=== PATIENT | female | born 1960 | race Caucasian/White ===

== ENCOUNTER 2017-11-17 06:40 | Inpatient (IN) | payer OTHER, SELFPAY ==
[2017-11-11 09:02] VITALS: BP 137/85; PULSE 86; RESP 16; TEMP 37.1; O2SAT 97; BMI 34.1
--- NOTE | 2017-11-11 09:38 | EKG12_ITS ---
Test Reason : Blood Pressure : / mmHG Vent. Rate : 079 BPM Atrial Rate : 079 BPM P-R Int : 128 ms QRS Dur : 086 ms QT Int : 384 ms P-R-T Axes : 029 -10 026 degrees QTc Int : 440 ms Normal sinus rhythm Moderate voltage criteria for LVH, may be normal variant Borderline ECG Confirmed by FLOR MIGUEL, JESSI ([id number]), film editor CELESTE RAYA ([id number]) on 11/12/2017 1:39:43 PM Referred By: READER PROJU Confirmed By:JESSI RAY MD
--- NOTE | 2017-11-11 09:40 | RAD_ITS ---
STUDY: X-RAY CHEST REASON FOR EXAM: Female, 56 years old. Preoperative evaluation for renal TECHNIQUE: PA and lateral views of the chest. COMPARISON: None. FINDINGS: The lungs are clear and expanded. Scattered calcified granulomas. There is no demonstrated pleural abnormality. Normal size heart. Normal mediastinum and king. Normal visualized pulmonary arteries. There is atherosclerotic tortuosity of the aortic arch and descending thoracic aorta. There are mild degenerative changes of the visualized thoracic spine. Normal visualized ribs, clavicles, and shoulders. There is no demonstrated abnormality of the visualized soft tissue structures of the upper abdomen. RAD/Chest PA and Lateral IMPRESSION: No acute abnormality is seen. Electronically Signed: Tad Devi MD at 10:50 EST Tel [phone], Service support ,
[2017-11-11 11:43] LABS: Hematocrit 40.7 % (37-47); Hemoglobin 13.1 g/dl (12.0-15.0); Mean Corp Hgb Conc 32.2 g/gl (32-36); Mean Corpuscular Hgb 28.4 pg (27.0-32.0); Mean Corpuscular Volume 88.1 fL (81-99); Platelet Count 250 K/mm3 (150-450); RBC Distribution Width CV 13.1 % (11.6-14.6); Red Blood Count 4.62 M/mm3 (4.2-5.4); Scan Indicated on CBC? Y/N NO; White Blood Count 5.8 K/mm3 (4.4-11.0)
[2017-11-11 12:32] LABS: AST(SGOT) 19 U/L (15-37); Alanine Aminotransfer ALT/SGPT 31 U/L (13-56); Albumin, Serum 3.8 g/dL (3.2-5.0); Alkaline Phosphatase 95 U/L (45-117); Anion Gap 7 (5-15); BUN 14 mg/dL (7-18); BUN/Creat Ratio 21.7 RATIO (10-20); Calcium,Total 8.9 mg/dL (8.5-10.1); Chloride 104 mmol/L (98-107); Creatinine, Serum 0.64 mg/dL (0.55-1.02); EST Glomerular Filtration Rate 101 mL/min (>60); Est Glom Filt Rate - Afr Amer 122 mL/min (>60); Estimated Creatinine Clearance 88.32 ml/min; Globulin 3.8 g/dL (2.2-4.2); Glucose 93 mg/dL (74-106); Potassium 4.2 mmol/L (3.5-5.1); Protein, Total 7.6 g/dL (6.4-8.2); Sodium Level 140 mmol/L (136-145); Thyroid Stim Hormone (TSH) 4.56 uIU/mL (0.358-3.74)
[2017-11-17] VITALS (14 sets, daily range): BP systolic 115–146; BP diastolic 72–88; PULSE 66–97; RESP 16–18; TEMP 35.8–37; O2SAT 92–99; BMI 34.1
[2017-11-17] MEDS: Cefazolin 2 GM in 0.9% Normal Saline 100 ML IV (08:29)
--- NOTE | 2017-11-17 08:45 | MASS_PTH ---
PATIENT: RYLAN RAYA LOC: MS2 U#:[id number] AGE/SX: 56/F ROOM: MS206 RE11/17/[address]: Dr. Aaron Perez MD : [id number] BED: 1 DIS: 11/19/2017 SPEC #: [id number] RECD: 11/17/17 15:10 STATUS: ITA GUSTABO #: [id number] LOLLY: 11/17/17 08:[address]: Aaron Perez DEPT: SURGICAL PATHOLOGY RECD BY: Justin Sandoval ENTERED: 11/18/17 09:02 SP TYPE: Mass OTHR DR: Dr. 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 See cancer summary below. KIDNEY CANCER SUMMARY: Procedure ? partial nephrectomy Specimen laterality - left Tumor site ? not specified Tumor size ? 1.6 cm in diameter Tumor focality - unifocal Macroscopic extent of tumor ? tumor limited to kidney Histologic type ? clear cell renal cell carcinoma Sarcomatoid features ? not identified Tumor necrosis ? not identified Histologic grade ([place] nuclear grade) ? predominantly grade 1 and focal area with grade 2 Microscopic tumor extension ? tumor limited to kidney Margins ? margins uninvolved by invasive carcinoma. Lymph-Vascular invasion ? not identified Regional lymph nodes ? no nodes submitted or found. Distant metastasis ? not applicable Pathologic findings in nonneoplastic kidney ? interstitial chronic inflammation and lymphoid aggregate formation, favor benign Other tumor and/or tumor-like lesions ? none identified PATHOLOGIC STAGE: pT1a pNx Mx The above summary is in compliance with [employer] [place] [employer] (CAP) Cancer Protocols Checklist and [place] [employer] Committee on Cancer (AJCC), Staging Manual, 8th Ed. SJ:rg 11/19/17 MICROSCOPIC DESCRIPTION Slides are reviewed. GROSS DESCRIPTION Received in fixative is one container labeled with the patient's name and designated left renal mass. The specimen consists of a round piece of duke-pink soft tissue with adipose tissue at one edge of the specimen measuring 2.5 x 2 x 1.8 cm. The specimen is inked, serially sectioned and reveals a round, hemorrhagic mass with focal cystic area occupying almost 90% of the specimen and measuring 1.6 cm in diameter. The mass shows thin capsule. No obvious normal renal parenchymal tissue is noted grossly. The entire specimen is submitted in four cassettes from end to another. / MAYRA:[place] 11/18/17 TC:0 CPT: 59276
[2017-11-17] MEDS: Bupivacaine 0.25% 30 ML Vial (09:04)
--- NOTE | 2017-11-17 11:53 | OP.PCM_ITS ---
Problem List (1) Left renal mass Status: Acute (2) Left kidney mass Status: Acute Report of Operation Date of Procedure: 11/17/17 Pre-Operative Diagnosis: Solid left renal mass 2 cm in size. Post-Operative Diagnosis: Same Surgery/Procedure Performed:: Laparoscopic robotic assisted left partial nephrectomy. Intraoperative ultrasound of the left kidney Description of Surgical Findings:: 56-year-old female taken back to the operating room after smooth induction of general anesthesia she was placed supine at first a Willingham catheter was placed we then placed her in modified left flank position with the left side up for approach to the kidney on the left side. The table was fully flexed the patient was padded and positioned makeshift making sure all pressure points were padded. Once the patient was in good position the abdomen was prepped and draped in usual sterile fashion and then marked out my camera port left and right robotic port and third special event assistant port and decided to place my air suction port to the umbilicus. I insufflated the abdomen with CO2 gas to create a pneumoperitoneum placed my camera port left arm port right arm port and my second right arm port and then placed a variceal port to the umbilicus. We docked the robot and then proceeded with the dissection first thing I did was dissect the colon off the kidney incised the white line of Toldt dissected the colon off the kidney all the way from the top of the kidney all the way down to the pelvis reflecting the colon as I did this I then went up above the kidney and reflected the spleen off the kidney this was done very meticulous fashion. I then dissected the fat of the mesentery off the Gerota's fascia and then identified a very large gonadal vein went below the gonadal vein and then traced the gonadal vein up towards the hilum use the third arm to retract the kidney cephalad why I was using my 2 arms to dissect encountered a very large lumbar branch of the gonadal vein quite large very abnormal decided not to try to dissect around this inferior of bleeding I then traced the lumbar vein and gonadal vein to the renal artery and renal vein the renal artery I could see just a branch of the renal artery and the top and really could not get behind the renal vein because of the very large lumbar veins and gonadal vein was quite large I did identify the vein to the gonadal at this point in reviewing the kidney I decided to perform perform intraoperative ultrasound tomography of the kidney identify the kidney parenchyma itself and then identified the tumor in the upper pole posteriorly of the kidney once the tumor was identified saw that the tumor was not only about 1 cm deep into the kidney and it was partially exophytic so given how difficult the anatomy of the blood vessels of the kidney were I decided to proceed with an off clamp resection given the fact that the tumor was not very deep. At this point then we started dissecting out the kidney I had to completely mobilize the kidney dissected the fat off the kidney off the lateral wall and then dissected the fat Gerota's fat off the kidney until gone to the parenchyma of the kidney and then dissected the kidney off the lateral wall and started to mobilize the kidney at the lateral wall I then went superiorly I was able to dissect the kidney off the spleen of the splenorenal ligament and then I was able to flip the kidney towards me and then went on top of the kidney and then was able to identify and see the mass in the upper pole posterior part of the left kidney ultrasonography again was performed to identify the mass to identify the edges of the mass of the per went. I then used very meticulous dissection and started going about 4 5 mm away from the mass circumferentially and then came down on top of the mass found the pseudocapsule and follow the mass and enucleated the mass off the kidney with the pseudocapsule intact with no gross violation of the mass only a small arterial bleeder was encountered after the mass was resected off the kidney and an off clamp fashion with no clamping of the vessels minimal bleeding and was placed immediately Endo Catch bag I then placed a stitches in the base of the resection site I ran V lock stitch a continuous fashion to the base of the resection site and then I placed 3-0 Vicryls to compress the resection site after the stitching was done there was no more bleeding. I did ultrasonography again of the kidney and the masses been resected completely with no residual tumor seen. We then irrigated copiously around the kidney suctioned out some blood that had had bled when we did the office Resection probably lost about 75 cc of blood I was then able to fit the kidney back onto its normal position for I did this I placed FloSeal on the site resection and a Surgicel pad for the kidney back into the site and then cover the kidney with fat. The robot was undocked at this point we then extracted the tumor through the umbilicus I looked at the tumor grossly removing the tumor and there was no violation of the pseudocapsule appear to be in complete resection I then closed the camera trocar with a Malachi Jeff stitch and then closed the variceal trocar the Malachi Jeff stitch we placed more lidocaine into the incisions closed the incisions with subcuticular stitches patient's anesthetic is currently being reversed all the instruments were accounted for. We did look and after removing the tumor to check for any postop bleeding and there was no bleeding before we closed the final stitch and the patient's anesthetic is being reversed to take back to PACU in good condition that should end dictation. Type of Anesthesia:: General Drains: willingham - Complications none - Admit VTE Documentation VTE Present on Admission: No VTE Mechan Device Prophylaxis: SCD's VTE Pharm Prophylaxis ordered?: No Reason prophylaxis not ordered:: Treatment Not Indicated
[2017-11-17] MEDS: Ketorolac 15 MG/ML Vial IV ×2 (12:14→17:07)
[2017-11-17] MEDS: 0.45% Normal Saline 1,000 ML 75 ML IV (13:40)
[2017-11-17] MEDS: 0.9% NaCl Peripheral Flush Adult/Peds IV ×2 (17:07→19:06)
[2017-11-17] MEDS: Ondansetron 4 MG/2 ML Vial IV (19:06)
[2017-11-17] MEDS: Docusate Sodium 100 MG Capsule PO (22:12)
[2017-11-18] MEDS: Ketorolac 15 MG/ML Vial IV ×4 (00:04→17:17)
[2017-11-18 01:08] VITALS: BP 128/81; PULSE 104; RESP 18; TEMP 36.9; O2SAT 96
[2017-11-18] MEDS: 0.45% Normal Saline 1,000 ML 75 ML IV (01:13)
[2017-11-18] MEDS: Enoxaparin 40 MG/0.4 ML Syringe SC (06:30)
[2017-11-18] MEDS: Levothyroxine 50 MCG Tablet PO (06:30)
--- NOTE | 2017-11-18 07:24 | PCM.PROGNOTE ---
Patient Problems: Active and Suspected Problems Left renal mass (Acute) Left kidney mass (Acute) Subjective: doing well feeling better this am - Physical Exam General: Alert, Oriented x3, Cooperative HEENT: Atraumatic, PERRLA, EOMI, Normocephalic Neck: Supple, No JVD, Negative Carotid Bruits Lungs: Clear to auscultation, Normal air movement Cardiovascular: Regular rate, No murmurs Abdomen: Bowel Sounds Present, Soft, Non Tender Extremities: No edema, Capillary Refill Less than 3 Seconds Skin: No rashes, No breakdown Musculoskeletal: No Tenderness to Palpation of Joints or Extremities Neurological: Cranial nerves II-XII grossly intact Psych/Mental Status: Normal Affect, Appropriate Vital Signs Temp Pulse Resp BP Pulse Ox 98.4 F 104 H 18 128/81 H 96 11/18/17 01:08 11/18/17 01:08 11/18/17 01:08 11/18/17 01:08 11/18/17 01:08 Oxygen Flow Rate 2 Oxygen Delivery Method Nasal Cannula Weight: 93.1 kg Body Mass Index (BMI) 34.1 Intake and Output for Last 24 Hours 11/16/17 11/17/17 11/18/17 23:59 23:59 23:59 Intake Total 3222 / 3222 1078 / 1078 Output Total 540 / 540 725 / 725 Balance 2682 / 2682 353 / 353 Assessment/Plan Active and Suspected Problems Left renal mass (Acute) Left kidney mass (Acute) heplock ivf out of bed ambulate adv diet likely home tomorrow.
[2017-11-18 08:55] VITALS: BP 132/76; PULSE 99; RESP 16; TEMP 36.9; O2SAT 94
[2017-11-18] MEDS: Sertraline 50 MG Tablet PO (08:57)
[2017-11-18] MEDS: Pantoprazole Sodium 20 MG Tablet PO (08:57)
[2017-11-18] MEDS: Docusate Sodium 100 MG Capsule PO ×2 (08:57→21:07)
[2017-11-18] MEDS: Lisinopril 10 MG Tablet PO (08:57)
[2017-11-18] MEDS: Magnesium Hydroxide 30 ML UDC 15 ML PO (08:59)
[2017-11-18] MEDS: 0.9% NaCl Peripheral Flush Adult/Peds IV ×2 (11:56→17:17)
[2017-11-18 14:05] VITALS: BP 144/76; PULSE 103; RESP 18; TEMP 37.2; O2SAT 93
--- NOTE | 2017-11-18 14:07 | CASEMGMT ---
See RN CM Assessment. DC Plan: home on discharge. No needs identified. Notify CM if dc needs arise. Lucas STONEN RN ACM
[2017-11-18 20:01] VITALS: BP 144/76; PULSE 103; RESP 18; TEMP 36.9; O2SAT 92
[2017-11-19] MEDS: Ketorolac 15 MG/ML Vial IV ×2 (00:19→05:48)
[2017-11-19] MEDS: 0.9% NaCl Peripheral Flush Adult/Peds IV ×2 (00:20→05:49)
[2017-11-19 02:01] VITALS: BP 146/80; PULSE 108; RESP 16; TEMP 37.1; O2SAT 92
[2017-11-19] MEDS: Enoxaparin 40 MG/0.4 ML Syringe SC (05:48)
[2017-11-19] MEDS: Levothyroxine 50 MCG Tablet PO (05:48)
[2017-11-19 08:01] VITALS: BP 153/81; PULSE 102; RESP 18; TEMP 37.1; O2SAT 94
[2017-11-19] MEDS: Magnesium Hydroxide 30 ML UDC 15 ML PO (09:12)
[2017-11-19] MEDS: Pantoprazole Sodium 20 MG Tablet PO (09:12)
[2017-11-19] MEDS: Sertraline 50 MG Tablet PO (09:12)
[2017-11-19] MEDS: Lisinopril 10 MG Tablet PO (09:12)
[2017-11-19] MEDS: Docusate Sodium 100 MG Capsule PO (09:12)
--- NOTE | 2017-11-19 10:57 | PCM.DC.URO ---
Discharge Diet: Light diet - advance as tolerated Discharge Activity: May not drive while taking narcotic pain medications. May shower in (days): 1 Lifting Restrictions: no lifting. Call your doctor if your incision/area has: Continuous Slow Oozing, Sudden Increased Bleeding, Increased Pain/ Swelling, Increased Redness, Foul Smelling Discharge, Swelling at the incision site Call your doctor if you observe: Fever of 101 or Higher Suture Line Care: Avoid Pulling/Pushing, Avoid Pinching/Bending Allergies/Adverse Reactions: Allergies No Known Allergies Allergy (Verified 11/11/17 08:59) Medications to take at Discharge Cholecalciferol (VIT D3) [Vitamin D] 1,000 unit PO DAILY 11/11/17 Levothyroxine [Synthroid] 50 mcg PO DAILY 11/11/17 Lisinopril [Zestril] 10 mg PO DAILY 11/11/17 Sertraline HCl [Zoloft] 50 mg PO DAILY 11/11/17 Docusate Sodium [Colace] 100 mg PO BID #20 cap 11/19/17 Hydrocodone/Acetaminophen [Zebulon 5-325 Tablet] 1 ea PO Q4H PRN PRN 5 Days #14 tab 11/19/17 The following prescriptions were given: Hydrocodone/Acetaminophen [Zebulon 5-325 Tablet] 1 ea PO Q4H PRN PRN 5 Days #14 tab PRN Reason: Pain Docusate Sodium [Colace] 100 mg PO BID #20 cap Primary Care Physician: Kevin Mcnulty [Primary Care Provider] - Please Follow Up With: Aaron Perez MD - call if need to change appt. When: November 25 at 8:45 am
--- NOTE | 2017-11-19 11:01 | DCINST_ITS ---
Discharge Diet: Light diet - advance as tolerated Discharge Activity: May not drive while taking narcotic pain medications. May shower in (days): 1 Lifting Restrictions: no lifting. Call your doctor if your incision/area has: Continuous Slow Oozing, Sudden Increased Bleeding, Increased Pain/ Swelling, Increased Redness, Foul Smelling Discharge, Swelling at the incision site Call your doctor if you observe: Fever of 101 or Higher Suture Line Care: Avoid Pulling/Pushing, Avoid Pinching/Bending Allergies/Adverse Reactions: Allergies No Known Allergies Allergy (Verified 11/11/17 08:59) Medications to take at Discharge Cholecalciferol (VIT D3) [Vitamin D] 1,000 unit PO DAILY 11/11/17 Levothyroxine [Synthroid] 50 mcg PO DAILY 11/11/17 Lisinopril [Zestril] 10 mg PO DAILY 11/11/17 Sertraline HCl [Zoloft] 50 mg PO DAILY 11/11/17 Docusate Sodium [Colace] 100 mg PO BID #20 cap 11/19/17 Hydrocodone/Acetaminophen [Crandall 5-325 Tablet] 1 ea PO Q4H PRN PRN 5 Days #14 tab 11/19/17 The following prescriptions were given: Hydrocodone/Acetaminophen [Crandall 5-325 Tablet] 1 ea PO Q4H PRN PRN 5 Days #14 tab PRN Reason: Pain Docusate Sodium [Colace] 100 mg PO BID #20 cap Primary Care Physician: Kevin Mcnulty [Primary Care Provider] - Please Follow Up With: Aaron Perez MD - call if need to change appt. When: November 25 at 8:45 am
--- NOTE | 2017-11-19 11:03 | DS.PCM_ITS ---
Discharge Date and Diagnosis - Problem List Patient Problems: Active and Suspected Problems Left renal mass (Acute) Left kidney mass (Acute) Date of Admission: 11/17/17 Date of Discharge: 11/19/17 - Primary Discharge Diagnosis Active and Suspected Problems Left renal mass (Acute) Left kidney mass (Acute) Hospital Course and Treatment Operations: - - left robotic partial nephrectomy Procedures: None Summary of Care Provided: The patient is a 56 year old Female with 2cm left renal mass s/p left robotic partial nephrectomy, post op course unremarkable discharged home in good conditionon post op day #2. Discharge Diet: Light diet - advance as tolerated Discharge Activity: May not drive while taking narcotic pain medications. May shower in (days): 1 Call your doctor if your incision/area has: Continuous Slow Oozing, Sudden Increased Bleeding, Increased Pain/ Swelling, Increased Redness, Foul Smelling Discharge, Swelling at the incision site Call your doctor if you observe: Fever of 101 or Higher Suture Line Care: Avoid Pulling/Pushing, Avoid Pinching/Bending Home Medications: Medications to take at Discharge Cholecalciferol (VIT D3) [Vitamin D] 1,000 unit PO DAILY 11/11/17 Levothyroxine [Synthroid] 50 mcg PO DAILY 11/11/17 Lisinopril [Zestril] 10 mg PO DAILY 11/11/17 Sertraline HCl [Zoloft] 50 mg PO DAILY 11/11/17 Docusate Sodium [Colace] 100 mg PO BID #20 cap 11/19/17 Hydrocodone/Acetaminophen [Hayes 5-325 Tablet] 1 ea PO Q4H PRN PRN 5 Days #14 tab 11/19/17 Following Prescrptions Were Given to Patient: Hydrocodone/Acetaminophen [Hayes 5-325 Tablet] 1 ea PO Q4H PRN PRN 5 Days #14 tab PRN Reason: Pain Docusate Sodium [Colace] 100 mg PO BID #20 cap Primary Care Physician: Kevin Mcnulty [Primary Care Provider] - Please Follow Up With: Aaron Perez MD - call if need to change appt. When: November 25 at 8:45 am Meaningful Use Info Meaningful Use Diagnoses (Choose all that apply): None applicable
== END 2017-11-19 11:14 | disposition home or self-care (01) | DRG 658 ==
LOC: ACINP 06:40 → MS2 08:58
PROVIDERS: Admitting Provider Urology; Family Provider Family Medicine; PCP Family Medicine; Visit Provider Urology
PROC: 0TB14ZZ Excision of Left Kidney, Percutaneous Endoscopic Approach (ICD-10-PCS; CPT 50543; principal; 2017-11-17 08:25)
DX: C64.2 Malignant neoplasm of left kidney, except renal pelvis (principal); E03.9 Hypothyroidism, unspecified; E55.9 Vitamin D deficiency, unspecified; I10 Essential (primary) hypertension
CPT/HCPCS: 36415; 80053; 84443; 85027; 86850; 86900; 86920; 86922; 88305; 88307; 97802; J7120; A4216; J2405

== ENCOUNTER → 2018-11-16 16:19 | Outpatient (CLI) | payer OTHER, SELFPAY ==
[2017-11-17 13:47] VITALS: BMI 34.1
--- NOTE | 2018-11-16 16:26 | CT_ITS ---
STUDY: CT ABDOMEN WITH CONTRAST REASON FOR EXAM: Female, 57 years old. Follow-up renal cancer. One year post partial left nephrectomy RADIATION DOSAGE (If Supplied By Facility): CTDIvol = ( 9.44 ) mGy, DLP = ( 474.06 ) mGycm TECHNIQUE: Transaxial images were obtained post I.V. administration of Isovue 300 100 IV, and without oral contrast. Sagittal and coronal images were reconstructed. Individualized dose optimization techniques were used for this CT. COMPARISON: None. FINDINGS: The visualized lung bases are unremarkable. The visualized portions of the heart are within normal limits. Normal liver. The gallbladder is contracted. Normal spleen. Normal pancreas. There is a 1.7 x 1.1 x 1.2 cm hypoechoic mass in right adrenal gland suggesting adenoma. There is a 0.9 x 0.7 x 0.5 cm hypoechoic mass in the left adrenal gland suggesting adenoma. Normal right kidney. Normal left kidney. There is no visualized mass or other abnormality. Normal visualized stomach. Normal visualized small intestine. Normal visualized colon. Minimal atherosclerotic changes of the abdominal aorta without aneurysm or dissection. Normal inferior vena cava. Normal retroperitoneum. Normal abdominal wall. Normal osseous structures. CT/Abdomen WITH IV Contrast IMPRESSION: 1. No evidence of local recurrence or metastatic disease. 2. Bilateral adrenal adenomas. Electronically Signed: Itz Bowden DO at 21:11 EST Tel [phone], Service support ,
[2018-11-16 16:40] LABS: CREATININE FINGERSTICK 0.8 mg/dL (0.55-1.02); EGFR FINGERSTICK > 60.0000 mL/min (>60)
== END ==
PROVIDERS: Family Provider Family Medicine; PCP Family Medicine; Referring Provider Urology; Visit Provider Urology
DX: C64.9 Malignant neoplasm of unspecified kidney, except renal pelvis (principal)
CPT/HCPCS: 74160; Q9967

== ENCOUNTER → 2019-11-17 15:39 | Outpatient (CLI) | payer OTHER, SELFPAY ==
--- NOTE | 2019-11-17 15:52 | CT_ITS ---
STUDY: CT ABDOMEN WITH CONTRAST REASON FOR EXAM: Female, 58 years old. LEFT KIDNEY CANCER F/U AND BENIGN BILATERAL ADRENAL ADENOMAS RADIATION DOSAGE (If Supplied By Facility): CTDIvol = ( 17.98 ) mGy, DLP = ( 771.80 ) mGycm TECHNIQUE: Transaxial images were obtained post I.V. administration of IV 100mL Isovue-300, and without oral contrast. Sagittal and coronal images were reconstructed. Individualized dose optimization techniques were used for this CT. COMPARISON: Previous study of 11/16/2018 FINDINGS: The visualized lung bases are unremarkable. The visualized portions of the heart are within normal limits. There is a subcentimeter low-attenuation focus of the right hepatic lobe, stable in the interval. This is indeterminate for solid versus cystic structure. There are surgical clips in the gallbladder fossa consistent with a prior cholecystectomy. Normal spleen. Normal pancreas. There is a low-attenuation right adrenal nodule measuring 1.4 x 1.3 cm. There is a low-attenuation left adrenal nodule measuring 1.2 x 1.3 cm. These appear stable in the interval and most likely represent benign adenomas. Normal right kidney. There is a nonobstructing 3 mm calculus of the left kidney. There is hazy density of the mid abdominal mesentery. Normal visualized stomach. Normal small intestine. Normal colon. There is non-visualization of the appendix. There are calcified plaques of the abdominal aorta. Normal inferior vena cava. Normal retroperitoneum. Normal abdominal wall. Normal osseous structures. CT/Abdomen WITH IV Contrast IMPRESSION: Bilateral low-attenuation adrenal nodules most likely representing benign adenomas, stable in the interval. There is no evidence of renal mass, recurrent disease, or metastatic disease. Status post cholecystectomy. Hazy density of the mesentery which may represent mesenteric radiculitis. This appears similar to the previous study. Subcentimeter low-attenuation focus of the right hepatic lobe indeterminate for solid versus cystic structure. This is also unchanged in the interval. Ultrasound correlation is recommended. Electronically Signed: Blaine Petit MD at 23:40 EST , Service support ,
[2019-11-17 16:05] LABS: CREATININE FINGERSTICK 0.6 mg/dL (0.55-1.02)
== END ==
PROVIDERS: PCP Family Medicine; Referring Provider Urology; Visit Provider Urology
DX: D35.02 Benign neoplasm of left adrenal gland (principal); C64.2 Malignant neoplasm of left kidney, except renal pelvis
CPT/HCPCS: 74160; Q9967

== ENCOUNTER → 2020-11-28 15:23 | Outpatient (CLI) | payer OTHER, SELFPAY ==
[2017-11-17 13:47] VITALS: BMI 34.1
--- NOTE | 2020-11-28 15:30 | RAD_ITS ---
STUDY: X-RAY CHEST REASON FOR EXAM: Female, 59 years old. KIDNEY CA,EXCEPT RENAL PELVIS TECHNIQUE: PA and lateral views of the chest. COMPARISON: September 10, 2018 FINDINGS: The lungs are clear and expanded. There is no demonstrated pleural abnormality. There is mild cardiac enlargement. Normal mediastinum and king. Normal visualized pulmonary arteries. Normal visualized aortic arch and descending thoracic aorta. There are diffuse degenerative changes of the visualized thoracic spine. Normal visualized ribs, clavicles, and shoulders. There is no demonstrated abnormality of the visualized soft tissue structures of the upper abdomen. RAD/Chest PA and Lateral IMPRESSION: Degenerative changes, as described above. No demonstrated acute cardiopulmonary process. Electronically Signed: Jaya Valenzuela MD at 16:19 EST , Service support ,
== END ==
PROVIDERS: PCP Family Medicine; Referring Provider Urology; Visit Provider Urology
DX: C64.2 Malignant neoplasm of left kidney, except renal pelvis (principal)
CPT/HCPCS: 71046

== ENCOUNTER 2021-12-19 13:49 | Outpatient (CLI) | payer OTHER, SELFPAY ==
[2021-12-19 14:15] LABS: Absolute Lymphocyte Count 2.01 X10^3/uL (0.83-4.51); Absolute Neutrophil Count 3.6 X10^3/uL (2.0-7.7); Basophil# 0.06 X10^3/uL; Basophil% 0.9 % (0-1); Eosinophils% 3.1 % (0-5); Hemoglobin 13.9 g/dL (12.0-15.0); Lymphocyte # 2.01 X10^3/ul (0.83-4.51); Lymphocyte % 31.6 % (19-41); Mean Corp Hgb Conc 33.1 g/dL (32-36); Mean Corpuscular Hgb 28.6 pg (27.0-32.0); Mean Corpuscular Volume 86.4 fL (81-99); Mean Platelet Vol. 11.6 fl (6.2-12.0); Monocyte# 0.46 X10^3/uL; Monocyte% 7.2 % (0-10); NRBC Flagged by Analyzer 0 % (0-5); Neutrophil # 3.61 X10^3/uL (2.7-7.7); Neutrophil % 56.9 % (47-70); Platelet Count 246 K/mm3 (150-450); RBC Distribution Width CV 13.1 % (11.6-14.6); RBC Distribution Width SD 41.6 fl (35.1-43.9); Red Blood Count 4.86 M/mm3 (4.2-5.4); White Blood Count 6.4 K/mm3 (4.4-11.0)
[2021-12-19 15:01] LABS: AST(SGOT) 14 U/L (15-37); Alanine Aminotransfer ALT/SGPT 28 U/L (13-56); Albumin, Serum 3.8 g/dL (3.2-5.0); Alkaline Phosphatase 93 U/L (45-117); Anion Gap 3 (5-15); BUN 10 mg/dL (7-18); BUN/Creat Ratio 15.3 RATIO (10-20); CPK Total, Creatine Kinase 62 U/L (26-192); CRP < 2.90 mg/L (0.0-3.0); Calcium,Total 9.1 mg/dL (8.5-10.1); Chloride 109 mmol/L (98-107); Creatinine, Serum 0.66 mg/dL (0.55-1.02); EST Glomerular Filtration Rate 98 mL/min (>60); Est Glom Filt Rate - Afr Amer 118 mL/min (>60); Globulin 3.7 g/dL (2.2-4.2); Glucose 103 mg/dL (74-106); LDH 186 U/L (84-246); Potassium 4.1 mmol/L (3.5-5.1); Protein, Total 7.5 g/dL (6.4-8.2); Rheumatoid Factor < 10.0 IU/mL (<15); Sodium Level 140 mmol/L (136-145)
[2021-12-22 14:09] LABS: Anti-Centromere B Ab <0.2 AI (0.0-0.9); Anti-Chromatin <0.2 AI (0.0-0.9); Anti-Jo <0.2 AI (0.0-0.9); Anti-Scleroderma-70 AB <0.2 AI (0.0-0.9); RNP Ab <0.2 AI (0.0-0.9); SJOGREN'S Anti-SS-A test < 0.2 AI (0.0-0.9); SJOGREN'S Anti-SS-B test < 0.2 AI (0.0-0.9); Smith Ab <0.2 AI (0.0-0.9)
[2021-12-22 14:31] LABS: Anti-dsDNA Ab <1 IU/mL (0-9)
[2021-12-30 12:00] LABS: Complement C3 137 mg/dL (82-167); Cytoplasmic Ab (C-ANCA) <1:20 titer (Neg:<1:20); Endomysial Antibody IgA Negative (Negative); HEPATITIS B SURFACE AG Negative (Negative); Hepatitis A IgM Antibody Negative (Negative); Hepatitis B Core AB IgM Negative (Negative); Immunoglobulin A 263 mg/dL (87-352); Immunoglobulin E 9 IU/mL (6-495); Immunoglobulin G 992 mg/dL (586-1602)
[2021-12-30 16:52] LABS: CCP IgG Antibodies 8 units (0-19); Hep C Antibodies <0.1 s/co ratio (0.0-0.9); Immunoglobulin M 89 mg/dL (26-217); Perinuclear Ab (P-ANCA) <1:20 titer (Neg:<1:20); t-Transglutaminase IgA <2 U/mL (0-3)
== END 2021-12-19 23:59 | disposition home or self-care (01) ==
LOC: LAB 13:51
PROVIDERS: PCP Family Medicine; Visit Provider Internal Medicine Gastroenterology
DX: I88.0 Nonspecific mesenteric lymphadenitis (principal)
CPT/HCPCS: 36415; 80053; 80074; 82550; 82784; 82785; 83516; 83615; 85025; 86140; 86160; 86200; 86225; 86235; 86255; 86256; 86431

== ENCOUNTER 2021-12-22 16:17 | Outpatient (CLI) | payer OTHER, SELFPAY ==
[2021-12-22 17:34] LABS: Erythrocyte Sedimentation Rate 4 mm/hr (0-30)
== END 2021-12-22 23:59 | disposition home or self-care (01) ==
LOC: LAB 16:17
PROVIDERS: PCP Family Medicine; Visit Provider Internal Medicine Gastroenterology
DX: I88.0 Nonspecific mesenteric lymphadenitis (principal)
CPT/HCPCS: 85652

== ENCOUNTER → 2022-01-09 | Outpatient (CLI) | payer OTHER, SELFPAY ==
--- NOTE | 2022-01-09 06:26 | MRI_ITS ---
STUDY: MRI ABDOMEN WITHOUT CONTRAST REASON FOR EXAM: Female, 61 years old. Liver lesion TECHNIQUE: Standardized fat and water weighted pulse sequences were obtained in all 3 orthogonal planes including MRCP sequences with reconstructions. COMPARISON: CT November 17, 2019 FINDINGS: The visualized lung bases are unremarkable. The visualized portions of the heart are within normal limits. There are 0.4 to 0.7 cm T2 signal hyperintensity lesions in the right lobe of the liver with small cysts or hemangiomas. The gallbladder is not seen consistent with cholecystectomy. Normal spleen. There is a 0.5 cm cyst of the uncinate process of the pancreatic head. There are cysts in the body and tail of the pancreas measuring 0.5 to 0.7 cm There is a 2.0 cm right adrenal mass. There is 1.8 cm left adrenal mass Normal right kidney. There is 0.7 cm cyst of the left kidney. There is focal signal dropout compatible with postoperative change of the upper pole of the left kidney. No hydronephrosis. Normal visualized stomach. Normal small intestine. Normal colon. There is non-visualization of the appendix. Normal abdominal aorta. Normal inferior vena cava. Normal retroperitoneum. Normal abdominal wall. Normal osseous structures. MRI/MRCP Abdomen without Contrast IMPRESSION: Small cysts or hemangiomas in the liver. Small cysts in the pancreas with IPMN versus pseudocysts. Stable bilateral adrenal masses. Electronically Signed: Jaya Valenzuela MD at 10:06 EDT Reading Location ID and State: [facility] / [place] , Service support ,
--- NOTE | 2022-01-09 07:41 | US_ITS ---
STUDY: ABDOMINAL ULTRASOUND - ELASTOGRAPHY REASON FOR VISIT: Female, 61 years old. [place]ON TECHNIQUE: Liver stiffness measurements were obtained on a xTurion RS 85 ultrasound machine using a CA 1-7 probe following the SRU guidelines. 3 measurements were obtained using a 2-D-SWE method. The IQR/M was 16% suggesting a quality data set. TECHNICAL QUALITY: Adequate. COMPARISON: Comparison is made with prior ultrasound of the right upper quadrant done earlier in the day. FINDINGS: Liver: There is fatty infiltration of the liver. Median liver stiffness measured 5.3 kPa. US/Elastography Parenchyma/Organ IMPRESSION: Liver stiffness measures 5.3 kPa compatible with F0-F1 (Normal to mild liver fibrosis) Metavir score. Electronically Signed: Tad Devi MD at 13:18 EDT ,
--- NOTE | 2022-01-09 07:48 | US_ITS ---
STUDY: ABDOMINAL ULTRASOUND - RIGHT UPPER QUADRANT REASON FOR VISIT: Female, 61 years old [place] TECHNIQUE: Ultrasound evaluation of the right upper quadrant was performed with real-time and static stanley-scale imaging. TECHNICAL QUALITY: Adequate. COMPARISON: None. FINDINGS: Liver: The liver measures 15.9 cm. There is increased echogenicity consistent with fatty infiltration. The bile ducts are within normal limits. There is hepatic color flow. The direction of portal flow is hepatopetal. There is no demonstrated mass lesion. Gallbladder: The patient is status post cholecystectomy. Common Bile Duct (C.B.D.): The common bile duct measures 6.6 mm. Pancreas: Normal size of the head, body and tail of the pancreas. There is increased echogenicity of the pancreas. There is no demonstrated pancreatic mass or cyst. Right Kidney: Normal size of the right kidney. The right kidney measures 11.3 cm x 4.7 cm x 4.2 cm. Normal renal cortex. The right cortex measures 1.7 cm. There is no demonstrated renal mass or cyst. There is no right hydronephrosis. US/Abdomen Limited IMPRESSION: Fatty infiltration of the liver. Electronically Signed: Tad Devi MD at 13:16 EDT ,
== END | disposition home or self-care (01) ==
PROVIDERS: PCP Family Medicine; Referring Provider Internal Medicine Gastroenterology; Visit Provider Internal Medicine Gastroenterology
DX: K75.81 Nonalcoholic steatohepatitis (NASH) (principal); K76.9 Liver disease, unspecified
CPT/HCPCS: 74181; 76705; 76981

== ENCOUNTER 2022-03-19 10:23 | Day surgery (SDC) | payer OTHER, SELFPAY ==
--- NOTE | 2022-03-16 14:56 | NURSING ---
Pt states she notified Dr Martinez's office that she tested positive for COVID on 03/10/22 and that as of today, 03/16/22, she is no longer having symptoms. Pt states that Dr Michelle's office was agreeable to complete the EGD, Colonoscopy 03/19/22 and instructed her to call [facility]. She also states that her symptoms started 03/07 or 03/08. Pt was informed that her Colonoscopy,EGD can be completed as scheduled 03/19/22 per Colette Nurse Architectural Intern.
[2022-03-19] VITALS (7 sets, daily range): BP systolic 112–148; BP diastolic 67–82; PULSE 66–84; RESP 16; TEMP 36.3–36.9; O2SAT 97–100; BMI 29.0
--- NOTE | 2022-03-19 10:34 | HP.PCM_ITS ---
History and Physical Date of Admission: 03/19/22 61 F who presents to the office today for Initial consultation. Teresa established with this clinic 4.10.11 with referral from her PCP for evaluation of RUQ abdominal pain with radiation into the back. Pain onset fall 2020 occurring intermittently but increasing in frequency. It is constant with mild discomfort but notes that intermittently it will get worse with varying duration. Notes that stretching that side and laying on that side will increase discomfort. No triggering events. She had cholecystectomy to address polyps and hopeful to address pain, but pain remains. Denies family history or personal history of liver disease. Denies constipation. Medical history includes vit D deficiency, joint pain, fibromyalgia, urinary incontinence (Dr. Kern), HTN, elevated blood sugar (well managed without medication), gallbladder polyp s/p cholecystectomy, BRYANT positive, kidney cancer with partial nephrectomy. CT abd performed 11.17.19 found low attenuation focus of right hepatic lobe, stable. Low-attenuation nodules bilateral kidneys. Hazy density of mid abdominal mesentery. Colonoscopy performed 11.08.[address] Garcias at [facility] without abnormal findings or polyps removed. In 2016 she had precancerous polyps removed. CT abd/pel performed 10.17.21 finding defect of left upper renal pole at site of previously identified renal mass. Moderate stool burden throughout colon. ROS Const Constitutional: No anorexia, fatigue, fever(s), weight change or sleep problems Eyes Eyes: No change in vision ENT ENT: No abnormal hearing, difficulty swallowing, mouth lesions, tongue swelling or throat swelling Resp Respiratory: No cough or shortness of breath Cardio Cardiology: No chest pain at rest, chest pain with exertion, shortness of breath or dyspnea on exertion Gastro GI: No difficulty swallowing Genitourinary-Female: No difficulty urinating or burning urination Musc Musculoskeletal: No joint pain, joint swelling, muscle weakness or decreased muscle mass Skin Skin: No hair loss in leg, yellowing of the eye, itchy eyes, rash, skin ulcer or skin swelling Neuro Neurology: No abnormal hearing, abnormal movements, confusion, unsteady gait/balance or memory loss Psych Psychiatric: No anxiety, No confusion and No memory loss Endo Endocrine: No fatigue or weight change Aller/Imm Allergy/Immunologic: No itchy eyes, throat swelling or tongue swelling Stewart/Lymp Hematologic/Lymphatic: No easy bleeding, easy bruising or enlarged lymph nodes Exam Const General: cooperative and comfortable Nutritional Appearance: average body habitus and well nourished [facility] Head: normal to inspection Ears: hearing grossly normal bilaterally Nose: external nose normal Face and sinus: normal facial exam Mouth: oral mucosae normal Throat: posterior oropharynx normal Eyes General: appearance normal, both eyes and all related structures Neck Neck: normal visual inspection Chest Chest palpation & inspection: normal inspection of the chest and normal palpation of entire chest wall Resp Effort & Inspection: normal respiratory effort Auscultation: Bilateral: Clear to Auscultation Cardio Palpation: normal PMI Rate: regular rate Rhythm: regular rhythm GI Inspection: normal to inspection Auscultation: normal bowel sounds Percussion: normal to percussion Palpation: no hepatosplenomegaly Skin General: no rashes or lesions noted Neuro General: patient alert Extrem General: normal to inspection Psych Affect: normal affect Quality Reporting Tobacco Screening ([facility]) Smoking Status: Never smoker Assessment and Plan Assessment and Plan (1) Mesenteric adenitis: ?Status:?Acute ? ? ? Orders:?Orders: ? CBC W/Diff, Automated Today ? ? ? ANCA Today ? ? ? CPK Total, Creatine Kinase Today ? ? ? CRP Today ? ? ? LDH Today ? ? ? Rheumatoid Factor Today ? ? ? Erythrocyte Sed Rate Today ? ? ? BRYANT Comprehensive Panel Today ? ? ? Hepatitis Panel Acute Today ? ? ? Complement C3 Today ? ? ? Complement C4 Today ? ? ? CCP IgG Antibodies Today ? ? ? Celiac Disease Profile Today ? ? ? Immunoglobulin E Today ? ? ? Immunoglobulin G Today ? ? ? Immunoglobulin M Today ? ? ? Comprehensive Metabolic Profil Today ?Plan - Dr. Daley Friend, DO: there is a stable lesion that is described as cystic or solid.? We will get a CT scan abdomen pelvis to further the clarify the size of the liver lesion.? She will also need an alpha-fetoprotein and a CA 19-9.? She has a previous diagnosis of fibromyalgia.? However she does have some weakness in her upper extremities.? She says she saw a pre press proofer and she was given a steroid injection which helped a little bit.? She should be worked up for an autoimmune disorder such as polymyalgia rheumatica.? She should also get lower endoscopy to evaluate for inflammatory disease of the upper GI tract in the lower GI tract.? Her history of abdominal pain nausea and change in bowel habits. (2) Liver lesion: ?Status:?Acute ? ? ? Orders:?Orders: ? MRCP Abdomen without Contrast Today ? ? I have re-examined the patient. There are no clinical changes since date of exam.
[2022-03-19] MEDS: Lactated Ringers 1,000 ML 30 ML IV (11:06)
--- NOTE | 2022-03-19 11:30 | COLBX_PTH ---
PATIENT: RYLAN RAYA LOC: EN U#:[id number] AGE/SX: 61/F ROOM: RE03/19/[address]: Dr. Edi Martinez DO : 1960 BED: DIS: 03/19/2022 SPEC #: [id number] RECD: 03/19/22 12:47 STATUS: ITA REAbhilash #: [id number] LOLLY: 03/19/22 11:[address]: Edi Martinez DEPT: SURGICAL PATHOLOGY RECD BY: Robin Pitt ENTERED: 03/19/22 13:44 SP TYPE: COLON BX OTHR DR: Dr. Kevin Mcnulty MD Tissues: A - Duodenum, NOS B - COLON BIOPSY C - Esophagus, NOS D - Ileum, NOS Procedures: Special Stain Group II Surgery Specimen Level IV Alcian Blue/PAS (control) HEADER OPERATION: Colonoscopy, EGD ([facility] [place]), biopsy PRE-OP DIAGNOSIS: Mesenteric adenitis TISSUE SUBMITTED: A - Duodenum biopsy, B - Lesser curvature biopsy, C - Distal esophagus biopsy, D - Terminal ileum biopsy MICROSCOPIC DIAGNOSIS A. Duodenum, biopsy: No pathologic change. B. Stomach, lesser curvature, biopsy: Mild chronic gastritis. C. Distal esophagus, biopsy: Gastroesophageal junctional mucosa with chronic inflammation. No evidence of goblet cell metaplasia. D. Terminal ileum, biopsy: No pathologic change. AM:[place] 03/20/2022 COMMENT C. Alcian blue/PAS stain with matched control supports the above diagnosis. MICROSCOPIC DESCRIPTION Slides are reviewed. GROSS DESCRIPTION A - Received in fixative is one container labeled with the patient's name and designated duodenum biopsy. The specimen consists of one irregular fragment of light duke soft tissue that measures 0.5 x 0.3 x 0.1 cm. The specimen is totally submitted in one cassette. B - Received in fixative is one container labeled with the patient's name and designated lesser curvature biopsy. The specimen consists of two irregular fragments of light duke soft tissue that in aggregate measure 0.8 x 0.4 x 0.1 cm. The specimen is totally submitted in one cassette. C - Received in fixative is one container labeled with the patient's name and designated distal esophagus biopsy. The specimen consists of multiple irregular fragments of light duke soft tissue that in aggregate measure 0.7 x 0.3 x 0.1 cm. The specimen is totally submitted in one cassette. D - Received in fixative is one container labeled with the patient's name and designated terminal ileum biopsy. The specimen consists of one irregular fragment of light duke soft tissue that measures 0.3 x 0.3 x 0.1 cm. The specimen is totally submitted in one cassette. / SJ:rg 03/19/2022 TC:3 CPT: 70481 x4, 47853
--- NOTE | 2022-03-19 12:04 | OP.EGD_ITS ---
Patient Name: Teresa Ayala Procedure Date: 03/19/2022 11:18 AM Date of : 1960 Age: 61 Procedure: Upper GI endoscopy Indications: Epigastric abdominal pain Providers: Edi Martinez DO Medicines: Monitored Anesthesia Care Patient Profile: This is a 61 year old female. Refer to note in patient chart for documentation of history and physical. Patient has symptoms of abdominal pain. Complications: No immediate complications. Procedure: Pre-Anesthesia Assessment: - Prior to the procedure, a History and Physical was performed, and patient medications and allergies were reviewed. The patient is competent. The risks and benefits of the procedure and the sedation options and risks were discussed with the patient. All questions were answered and informed consent was obtained. Patient identification and proposed procedure were verified by the physician in the pre-procedure area. Mental Status Examination: alert and oriented. Airway Examination: normal oropharyngeal airway and neck mobility. Respiratory Examination: clear to auscultation. CV Examination: normal. Prophylactic Antibiotics: The patient does not require prophylactic antibiotics. Prior Anticoagulants: The patient has taken no previous anticoagulant or antiplatelet agents. ASA Grade Assessment: II - A patient with mild systemic disease. After reviewing the risks and benefits, the patient was deemed in satisfactory condition to undergo the procedure. The anesthesia plan was to use moderate sedation / analgesia (conscious sedation). Immediately prior to administration of medications, the patient was re-assessed for adequacy to receive sedatives. The heart rate, respiratory rate, oxygen saturations, blood pressure, adequacy of pulmonary ventilation, and response to care were monitored throughout the procedure. The physical status of the patient was re-assessed after the procedure. After obtaining informed consent, the endoscope was passed under direct vision. Throughout the procedure, the patient's blood pressure, pulse, and oxygen saturations were monitored continuously. The Colonoscope was introduced through the mouth, and advanced to the second part of duodenum. The upper GI endoscopy was accomplished without difficulty. The patient tolerated the procedure well. Scope In: 11:27:18 AM Scope Out: 11:32:21 AM Total Procedure Duration Time 0 hours 5 minutes 3 seconds Findings: The Z-line was irregular and was found 38 cm from the incisors. Biopsies were taken with a cold forceps for histology. Verification of patient identification for the specimen was done. Estimated blood loss was minimal. Patchy mildly erythematous mucosa without bleeding was found in the gastric body and on the lesser curvature of the stomach. Biopsies were taken with a cold forceps for histology. Verification of patient identification for the specimen was done. Estimated blood loss was minimal. There was also a small hiatal hernia seen. Patchy mildly erythematous mucosa without active bleeding and with no stigmata of bleeding was found in the first portion of the duodenum. Biopsies were taken with a cold forceps for histology. Verification of patient identification for the specimen was done. Estimated blood loss was minimal. Impression: - Z-line irregular, 38 cm from the incisors. Biopsied. - Erythematous mucosa in the gastric body and lesser curvature. Biopsied. - Erythematous duodenopathy. Biopsied. Recommendation: - Discharge patient to home. - Resume previous diet. - Continue present medications. - Await pathology results. Procedure Code(s): --- Professional --- 95467, Esophagogastroduodenoscopy, flexible, transoral; with biopsy, single or multiple CPT copyright 2017 [employer]. All rights reserved. The codes documented in this report are preliminary and upon hairspring fabrication supervisor review may be revised to meet current compliance requirements. Edi Martinez DO 03/19/2022 12:04:24 PM This report has been signed electronically. Number of Addenda: 1 Note Initiated On: 03/19/2022 11:18 AM Addendum Number: 1 Addendum Date: 06/23/2022 5:58:13 AM MAC was used as sedation for this procedure. Edi Martinez DO 06/23/2022 5:58:30 AM This report has been signed electronically.
--- NOTE | 2022-03-19 12:04 | OP.CCLET_ITS ---
06/23/2022 Kevin Mcnulty Re : Upper GI endoscopy procedure for Teresa [place] This procedure was performed on February. My impressions and recommendations are as follows: Impressions : - Z-line irregular, 38 cm from the incisors. Biopsied. - Erythematous mucosa in the gastric body and lesser curvature. Biopsied. - Erythematous duodenopathy. Biopsied. Recommendations : - Discharge patient to home. - Resume previous diet. - Continue present medications. - Await pathology results. My findings are described in the full procedure note, which is enclosed. If I can be of further assistance, please feel free to contact me at . Sincerely, Edi Martinez, 03/19/2022 12:04:24 PM This report has been signed electronically.
--- NOTE | 2022-03-19 12:07 | OP.COLON_ITS ---
Patient Name: Teresa Ayala Procedure Date: 03/19/2022 11:33 AM Date of : 1960 Age: 61 Procedure: Colonoscopy Indications: Screening for colorectal malignant neoplasm Providers: Edi Martinez DO Medicines: Monitored Anesthesia Care Patient Profile: This is a 61 year old female. Refer to note in patient chart for documentation of history and physical. Patient has symptoms. Patient has symptoms. Last Colonoscopy: date unknown. Complications: No immediate complications. Procedure: Pre-Anesthesia Assessment: - Prior to the procedure, a History and Physical was performed, and patient medications and allergies were reviewed. The patient is competent. The risks and benefits of the procedure and the sedation options and risks were discussed with the patient. All questions were answered and informed consent was obtained. Patient identification and proposed procedure were verified by the physician in the pre-procedure area. Mental Status Examination: alert and oriented. Airway Examination: normal oropharyngeal airway and neck mobility. Respiratory Examination: clear to auscultation. CV Examination: normal. Prophylactic Antibiotics: The patient does not require prophylactic antibiotics. Prior Anticoagulants: The patient has taken no previous anticoagulant or antiplatelet agents. ASA Grade Assessment: II - A patient with mild systemic disease. After reviewing the risks and benefits, the patient was deemed in satisfactory condition to undergo the procedure. The anesthesia plan was to use moderate sedation / analgesia (conscious sedation). Immediately prior to administration of medications, the patient was re-assessed for adequacy to receive sedatives. The heart rate, respiratory rate, oxygen saturations, blood pressure, adequacy of pulmonary ventilation, and response to care were monitored throughout the procedure. The physical status of the patient was re-assessed after the procedure. After I obtained informed consent, the scope was passed under direct vision. Throughout the procedure, the patient's blood pressure, pulse, and oxygen saturations were monitored continuously. The Colonoscope was introduced through the anus and advanced to the terminal ileum. The colonoscopy was performed without difficulty. The patient tolerated the procedure well. The quality of the bowel preparation was only fair. Scope In: 11:34:20 AM Scope Withdrawal Time 0 hours 11 minutes 12 seconds Scope Out: 11:50:54 AM Total Procedure Duration Time 0 hours 16 minutes 34 seconds Findings: The perianal and digital rectal examinations were normal. A moderate amount of stool was found in the rectum, in the recto-sigmoid colon, in the sigmoid colon, at the splenic flexure and in the cecum. A patchy area of mucosa in the terminal ileum was granular. Biopsies were taken with a cold forceps for histology. Verification of patient identification for the specimen was done. Estimated blood loss was minimal. Impression: - Stool in the rectum, in the recto-sigmoid colon, in the sigmoid colon, at the splenic flexure and in the cecum. - Granularity in the terminal ileum. Biopsied. Recommendation: - Discharge patient to home. - Resume previous diet. - Continue present medications. - Await pathology results. - Repeat colonoscopy in 5 years for surveillance. Procedure Code(s): --- Professional --- 35561, Colonoscopy, flexible; with biopsy, single or multiple CPT copyright 2017 [employer]. All rights reserved. The codes documented in this report are preliminary and upon sales operations consultant review may be revised to meet current compliance requirements. Edi Martinez DO 03/19/2022 12:07:43 PM This report has been signed electronically. Number of Addenda: 1 Note Initiated On: 03/19/2022 11:33 AM Addendum Number: 1 Addendum Date: 06/23/2022 5:58:38 AM MAC was used as sedation for this procedure. Edi Martinez DO 06/23/2022 5:58:44 AM This report has been signed electronically.
--- NOTE | 2022-03-19 12:08 | OP.CCLET_ITS ---
06/23/2022 Kevin Mcnulty Re : Colonoscopy procedure for Teresa [place] This procedure was performed on February. My impressions and recommendations are as follows: Impressions : - Stool in the rectum, in the recto-sigmoid colon, in the sigmoid colon, at the splenic flexure and in the cecum. - Granularity in the terminal ileum. Biopsied. Recommendations : - Discharge patient to home. - Resume previous diet. - Continue present medications. - Await pathology results. - Repeat colonoscopy in 5 years for surveillance. My findings are described in the full procedure note, which is enclosed. If I can be of further assistance, please feel free to contact me at . Sincerely, Edi Martinez, 03/19/2022 12:07:43 PM This report has been signed electronically.
== END 2022-03-19 12:46 | disposition home or self-care (01) ==
LOC: EN 10:24 → AC 10:26
PROVIDERS: PCP Family Medicine; Referring Provider Family Medicine; Visit Provider Internal Medicine Gastroenterology
PROC: 0DJD8ZZ Inspection of Lower Intestinal Tract, Via Natural or Artificial Opening Endoscopic (ICD-10-PCS; CPT 45378; principal; 2022-03-19 11:25)
DX: Z12.11 Encounter for screening for malignant neoplasm of colon (principal); K29.50 Unspecified chronic gastritis without bleeding; K44.9 Diaphragmatic hernia without obstruction or gangrene; R10.13 Epigastric pain; I10 Essential (primary) hypertension; E05.90 Thyrotoxicosis, unspecified without thyrotoxic crisis or storm; E55.9 Vitamin D deficiency, unspecified; K76.9 Liver disease, unspecified; M79.7 Fibromyalgia; I88.0 Nonspecific mesenteric lymphadenitis; Z90.5 Acquired absence of kidney; Z79.899 Other long term (current) drug therapy; Z86.16 Personal history of COVID-19
CPT/HCPCS: 45380; 43239; 88305; 88313; J7120; J2405

== ENCOUNTER → 2022-04-02 | Outpatient (CLI) | payer OTHER, SELFPAY ==
[2022-04-07 14:22] LABS: Carbohydrate Ag 19-9 2261 9 U/mL (0-35)
== END | disposition home or self-care (01) ==
PROVIDERS: PCP Family Medicine; Visit Provider Internal Medicine Gastroenterology
DX: K86.2 Cyst of pancreas (principal)
CPT/HCPCS: 36415; 86301

== ENCOUNTER → 2022-10-09 | Outpatient (CLI) | payer OTHER, SELFPAY ==
--- NOTE | 2022-10-09 06:49 | CT_ITS ---
STUDY: CT ABDOMEN AND PELVIS WITH CONTRAST REASON FOR EXAM: Female, 61 years old. Liver lesion? Compare to US from 01/09/22 RADIATION DOSAGE (If Supplied By Facility): CTDIvol = ( 17.19 ) mGy, DLP = ( 1070.83 ) mGycm TECHNIQUE: Transaxial images were obtained from the dome of the diaphragm to the symphysis pubis with oral contrast. Oral and amp; IV Gastrografin and amp; 100mL Isovue-370 was administered. Sagittal and coronal images were reconstructed. Individualized dose optimization techniques were used for this CT. COMPARISON: Comparison is made with prior CT scan dated 11/17/2019 and prior ultrasound dated 01/09/2022. FINDINGS: The visualized lung bases are unremarkable. The visualized portions of the heart are within normal limits. 8 mm cyst is seen in the lateral aspect of the right lobe of the liver superiorly. This is unchanged. A 4 mm cyst is also seen in the peripheral lateral aspect of the inferior portion of the right lobe of the liver. There are surgical clips in the gallbladder fossa consistent with a prior cholecystectomy. Normal spleen. Normal pancreas. Stable small bilateral adrenal adenomas. Normal right kidney. Normal left kidney. There is a small hiatal hernia. Normal small intestine. There are scattered colonic diverticula consistent with diverticulosis. The appendix is visualized and appears normal. There is scattered atherosclerotic calcification of the abdominal aorta, without a demonstrated aneurysm. Normal inferior vena cava. Normal retroperitoneum. Stable mild increased markings in the root of the mesentery. This is nonspecific. Normal urinary bladder. There is a 2.3 cm cyst in the right ovary. Normal abdominal wall. Normal osseous structures. CT/Abdomen/Pelvis WITH Contrast IMPRESSION: There are 2, subcentimeter cysts in the right lobe of the liver. These are unchanged. Status post cholecystectomy. Stable small bilateral adrenal adenomas. 2.3 cm right ovarian cyst. Electronically Signed: Tad Devi MD at 9:34 EST ,
[2022-10-09 07:20] LABS: CREATININE FINGERSTICK < 0.9 mg/dL (0.55-1.02); EGFR FINGERSTICK > 60.0000 mL/min (>60)
[2022-10-09 16:08] LABS: AST(SGOT) 15 U/L (15-37); Alanine Aminotransfer ALT/SGPT 28 U/L (13-56); Albumin, Serum 3.7 g/dL (3.2-5.0); Alkaline Phosphatase 72 U/L (45-117); Amylase 79 U/L (25-115); Bilirubin, Direct 0.08 mg/dL (0.00-0.30); Globulin 3.5 g/dL (2.2-4.2); Lipase 171 U/L (73-393); Protein, Total 7.2 g/dL (6.4-8.2)
[2022-10-12 18:40] LABS: Anti-Mitochondrial AB <20.0 Units (0.0-20.0)
[2022-10-13 00:07] LABS: IgG, Quant 1062 mg/dL (586-1602); Immunoglobulin G, Subclass 1 641 mg/dL (248-810); Immunoglobulin G, Subclass 2 141 mg/dL (130-555); Immunoglobulin G, Subclass 3 103 mg/dL (15-102); Immunoglobulin G, Subclass 4 37 mg/dL (2-96)
[2022-10-13 11:33] LABS: Anti-Smooth Muscle ABS 2 Units (0-19)
== END | disposition home or self-care (01) ==
PROVIDERS: Nurse Practitioner Adult Health; PCP Family Medicine; Referring Provider Internal Medicine Gastroenterology; Visit Provider Internal Medicine Gastroenterology
DX: K76.89 Other specified diseases of liver (principal); D35.01 Benign neoplasm of right adrenal gland; D35.02 Benign neoplasm of left adrenal gland; N83.201 Unspecified ovarian cyst, right side; Z90.49 Acquired absence of other specified parts of digestive tract
CPT/HCPCS: 36415; 74177; 80076; 82150; 82784; 82787; 83516; 83690; Q9967

== ENCOUNTER → 2022-10-10 | Outpatient (CLI) | payer OTHER, SELFPAY ==
[2022-10-14 20:41] LABS: Pancreatic Elastase, Fecal 279 (>200)
== END | disposition home or self-care (01) ==
LOC: LABSPEC 08:51
PROVIDERS: PCP Family Medicine; Referring Provider Nurse Practitioner Adult Health; Visit Provider Nurse Practitioner Adult Health
DX: R10.11 Right upper quadrant pain (principal); K86.2 Cyst of pancreas
CPT/HCPCS: 82653

== ENCOUNTER → 2022-11-27 | Outpatient (CLI) | payer OTHER, SELFPAY ==
--- NOTE | 2022-11-27 10:54 | MRI_ITS ---
EXAM: MR ABDOMEN WITHOUT INTRAVENOUS CONTRAST, MRCP PROTOCOL CLINICAL INDICATION: cysts in pancreas, IPMN vs pseudocysts -- one yr f/u TECHNIQUE: Multiplanar and multisequence MR images of the abdomen without intravenous contrast obtained with MRCP sequence. Three-dimensional post-processing reconstructions were performed. Magnetic field strength 1.5 T. This report was created using [employer] report generation technology. COMPARISON: 01/09/2022. FINDINGS: LOWER THORAX: Unremarkable. No pleural effusion. LIVER: Unremarkable. No change in the small T2 hyperintense lesions in the right lobe of the liver. GALLBLADDER AND BILE DUCTS: Cholecystectomy. No intra- or extrahepatic biliary ductal dilation. No choledochal filling defect. PANCREAS: Unremarkable. No change in the 4.5 mm cyst in the uncinate process of the pancreas. No change in the 5 mm cyst in the body of the pancreas that may communicate with the main pancreatic duct. No change in the 2 tiny cysts that measure approximately 4 mm in the tail of the pancreas. SPLEEN: Unremarkable. Non-enlarged. ADRENALS: No change small bilateral adrenal masses. KIDNEYS AND URETERS: Unremarkable. Normal renal size and position. No hydronephrosis. INTRAPERITONEAL SPACE: Unremarkable. No ascites or other fluid collection. VASCULATURE: Unremarkable. Abdominal aorta is non-dilated. LYMPH NODES: No enlarged lymph nodes. MRI/MRCP Abdomen without Contrast IMPRESSION: 1. No change in the 4.5 mm cyst in the uncinate process of the pancreas. 2. No change in the 5 mm cyst in the body of the pancreas that may communicate with the main pancreatic duct. 3. No change in the 2 tiny cysts that measure approximately 4 mm in the tail of the pancreas. 4. No change in the small T2 hyperintense lesions in the right lobe of the liver. 5. No change small bilateral adrenal masses. 6. Overall there is no change in the pancreatic cysts compared to the prior exam. Recommend continued yearly follow-up. 7. Cholecystectomy. Electronically Signed: Holland Haas MD at 9:23 EST ,
== END | disposition home or self-care (01) ==
PROVIDERS: PCP Family Medicine; Visit Provider Nurse Practitioner Adult Health
DX: K86.2 Cyst of pancreas (principal)
CPT/HCPCS: 74181